=== PATIENT | female | born 1945 | race Caucasian/White ===

== ENCOUNTER 2022-06-26 21:26 | Emergency (ER) | payer MEDICARE, BC ==
[~2022-06-26] VITALS: Ht 167.6 cm; Wt 59.0 kg
[~2022-06-26 21:26] MED LIST: CYAN-51 PO; DOCU-141 PO; ERGO500014 PO; ESTR1.25 PO; HYDR4TAB4 PO; LORA-258 PO; PROM25TA15 PO; PROP80CA51 PO
--- NOTE | 2022-06-26 21:40 | NUR ---
TO ER BED 9. [id number] FROM HOME FOR GLF HIT BACK OF HEAD +LAC TDAP UNKNOWN -KO. PT IS ALERT AND ORIENTED. RR EVEN AND NONLABORED. CONNECTED TO MONITOR.
[2022-06-26] MEDS ORDERED: LIDOCAINE HCL/MPF 1% 30 ML VIAL IJ ONE (21:49)
[2022-06-26] MEDS ORDERED: LIDOCAINE /MPF 1% VIAL 5 ML VIAL ONE (21:50)
[2022-06-26] MEDS ORDERED: LIDOCAINE HCL/PF 1% 30 ML SDV ONE (21:51)
[2022-06-26] MEDS ORDERED: LIDOCAINE 0.5% HCL 50 ML VIAL ONE (21:52)
[2022-06-26] MEDS ORDERED: TDAP [DIPH/PERTUSSIS/TET] 0.5 ML VIAL IM ONE ×2 (22:00→22:11)
--- NOTE | 2022-06-26 23:45 | NUR ---
Patient discharged to home in stable condition. Written and verbal after care instructions given. Patient verbalizes understanding of instruction.
[2022-06-26 23:56] VITALS: BP 156/84
[2022-07-04] MEDS ORDERED: LEVE250T2 PO (16:34)
[2022-07-04] MEDS ORDERED: METR500P3 IV (16:34)
[2022-07-04] MEDS ORDERED: RXGEN XX (16:34)
== END 2022-06-26 23:56 | disposition home or self-care (01) ==
LOC: ER 21:32
DX: S01.01XA Laceration without foreign body of scalp, initial encounter (principal); Z88.8 Allergy status to other drugs, medicaments and biological substances; Z88.2 Allergy status to sulfonamides; Z88.6 Allergy status to analgesic agent; Z88.1 Allergy status to other antibiotic agents; Z88.5 Allergy status to narcotic agent; Z88.0 Allergy status to penicillin; Z60.2 Problems related to living alone; Z79.899 Other long term (current) drug therapy; W18.09XA Striking against other object with subsequent fall, initial encounter; Y93.89 Activity, other specified; Y92.89 Other specified places as the place of occurrence of the external cause; Y99.8 Other external cause status
CPT/HCPCS: 99283; 12002; 90471; 90715; J3490 ×4; A6403; 70450-TC

== ENCOUNTER 2022-06-29 03:49 | Inpatient (IN) | payer MEDICARE, BC ==
[~2022-06-29] VITALS: Ht 167.6 cm; Wt 59.0 kg
[2022-06-29 04:03] VITALS: BP 151/68
[2022-06-29 05:00] LABS: BILIRUBIN,URINE NEGATIVE (NEGATIVE); COLOR,URINE YELLOW (YELLOW); LEUKOCYTE ESTERASE ,URINE NEGATIVE (NEGATIVE); NITRITE, URINE NEGATIVE (NEGATIVE); PROTEIN,URINE NEGATIVE (NEGATIVE); UGLUCOSE NEGATIVE (NEGATIVE); UROBILINOGEN,URINE 0.2 EU/dL (0.2)
[2022-06-29] MEDS ORDERED: MEPERIDINE HCL/PF 100 MG/2 ML AMPUL IM ONE (05:00)
[2022-06-29] MEDS ORDERED: MORPHINE SULFATE INJ 2 MG/ML DISP.SYRIN IM ONE (07:00)
[2022-06-29] MEDS ORDERED: MORPHINE SULFATE INJ 2 MG/ML DISP.SYRIN ONE (07:00)
--- NOTE | 2022-06-29 07:55 | NUR ---
DR LYN AT BEDSIDE
--- NOTE | 2022-06-29 08:04 | NUR ---
PATIENT STS THAT MARCOS IS GOING TO PICK HER UP BUT REFUSED TO GIVE HER NUMBER SO WE CAN CALL HER.
--- NOTE | 2022-06-29 10:15 | NUR ---
JACOB LEIGH AT BEDSIDE FOR EVAL
[2022-06-29 10:57] LABS: BASOPHILS % (AUTO) 0.2 % (0.0-2.0); EOSINOPHILS % (AUTO) 0.2 % (0.0-6.0); HEMATOCRIT 29 % (33-45); HEMOGLOBIN 9.5 g/dL (11.5-14.8); LYMPHOCYTES # (AUTO) 1.4 K/uL (0.8-4.8); MEAN CORPUSCULAR HGB CONC 33 g/dl (31.0-36.0); MEAN CORPUSCULAR VOLUME 89 fL (82-100); MONOCYTES # (AUTO) 0.5 K/uL (0.1-1.30); MONOCYTES % (AUTO) 4.6 % (2.0-12.0); NEUTROPHILS # (AUTO) 8.7 K/uL (1.8-8.9); PLATELET COUNT (AUTO) 481 K/uL (150-450); RED BLOOD CELL COUNT(AUTO) 3.29 MIL/uL (4.0-5.2); WHITE BLOOD COUNT (AUTO) 10.6 K/uL (4.3-11.0)
[2022-06-29 11:04] LABS: BILIRUBIN,URINE NEGATIVE (NEGATIVE); COLOR,URINE YELLOW (YELLOW); LEUKOCYTE ESTERASE ,URINE NEGATIVE (NEGATIVE); NITRITE, URINE NEGATIVE (NEGATIVE); PROTEIN,URINE NEGATIVE (NEGATIVE); UGLUCOSE NEGATIVE (NEGATIVE); UROBILINOGEN,URINE 0.2 EU/dL (0.2)
[2022-06-29 11:05] LABS: PH,URINE >9.0 (5.0-8.0)
[2022-06-29 11:15] LABS: ALANINE AMINOTRANSFERASE 15 U/L (12-78); ALBUMIN 2.9 g/dL (3.4-5.0); ALKALINE PHOSPHATASE 114 U/L (46-116); ASPARTATE AMINOTRANSFERASE 19 U/L (15-37); BILIRUBIN,DIRECT 0.1 mg/dL (0.0-0.2); BILIRUBIN,TOTAL 0.4 mg/dL (0.2-1.0); CALCIUM, SERUM 9.1 mg/dL (8.5-10.1); CARBON DIOXIDE 30 mmol/L (21-32); CHLORIDE 98 mmol/L (98-107); CREATININE 0.9 mg/dL (0.6-1.3); GLUCOSE 129 mg/dL (74-106); POTASSIUM 3.6 mmol/L (3.5-5.1); SODIUM SERUM 139 mmol/L (136-145); TOTAL PROTEIN, SERUM 7.1 g/dL (6.4-8.2); UREA NITROGEN, BLOOD 10 mg/dL (7-18)
[2022-06-29 11:37] LABS: ACETAMINOPHEN 0 ug/ml (10-30); ALCOHOL, BLOOD < 3 mg/dL (0-0)
[2022-06-29 11:43] LABS: BACTERIA,URINE Few /HPF (None Seen); RBC,URINE 0-2 /HPF (0-2); SQUAMOUS EPITHELIAL CELL,UR Few /HPF (None Seen); WBC,URINE 0-2 /HPF (0-3)
[2022-06-29] MEDS ORDERED: MILN50TA PO (11:47)
[2022-06-29] MEDS ORDERED: CHOL100043 PO (11:47)
[2022-06-29] MEDS ORDERED: AMLO-212 PO (11:47)
[2022-06-29] MEDS ORDERED: DEXL60CA3 PO (11:47)
[2022-06-29] MEDS ORDERED: FOLI0.4T6 PO (11:55)
[2022-06-29] MEDS ORDERED: MAGN400T26 PO (11:55)
[2022-06-29] MEDS ORDERED: CLON1TAB12 PO (15:43)
[2022-06-29] MEDS ORDERED: [UNRECOGNIZED DRUG - CODE] SQ (15:43)
--- NOTE | 2022-06-29 16:53 | NUR ---
COVID SWAB AND MRSA SWAB COLLECTED
[2022-06-29] MEDS ORDERED: LORAZEPAM 1 MG TABLET PO ONE (17:00)
--- NOTE | 2022-06-29 19:31 | NUR ---
REPORT GIVEN NOVAN. PT AWAITING TRANSFER TO FLOOR.
--- NOTE | 2022-06-29 19:41 | NUR ---
PT TRANSFERRED TO [facility] ROOM 218, ACCOMPANIED BY TRANSPORTER. WARM HANDOFF GIVEN TO RN ASSIGNED.
--- NOTE | 2022-06-29 20:00 | NUR ---
[facility] RN NOTES PATIENT WAS MEDICALLY CLEARED AT EMERGENCY DEPARTMENT AND WHEN SHE WAS BROUGHT IN THE UNIT. PATIENT STARTED VOMITING WITH BLOOD CLOTS, APPEARED DARK RED IN COLOR IN SMALL TO MODERATE AMOUNT OF BLOOD. PATIENT HAS BEEN IN ER FOR 24HRS WITH CHIEF COMPLIANT OF DIZZINESS AND NAUSEA SINCE TUESDAY. PATIENT V/S TAKEN AND RECORDED BP 152/68, HR62, R-19, TEMP. 97.4 O2 SAT. AT 100% ON ROOM AIR. 2004- CALLED [facility] SPOKE WITH DR. PALUMBO NOTIFIED CHANGE OF CONDITION OF THE PATIENT WITH ORDER TO SEND BACK THE PATIENT TO ER AND TO DO COMPLETE WORK UP. ONCE COMPLETED, GIVE HIM A CALL IF THE PATIENT ADMITTED TO MED SURG. 2006 - DR. AUGUSTINE NOTIFIED THAT PATIENT WAS SENT BACK TO ER WELL NURSE HOE WORKER DANIEL. 2009 - CALLED ER SPOKE TO JAREN LUZ INFORMED HER TO SEND THE PATIENT BACK PER DR. PALUMBO ORDER. 2014 - PATIENT LEFT IN THE UNIT VIA GURNEY ACCOMPANIED BY STAFF IN STABLE CONDITION. NO NAUSEA AND VOMITING NOTED AT THIS TIME. CHARGE NURSE AWARE.
[2022-07-04] MEDS ORDERED: RXGEN XX (16:34)
[2022-07-04] MEDS ORDERED: LEVE250T2 PO (16:34)
[2022-07-04] MEDS ORDERED: METR500P3 IV (16:34)
== END 2022-06-29 20:46 | disposition home or self-care (01) | DRG 885 ==
LOC: ER 03:50 → GPS 19:11
PROVIDERS: ADMIT Psychiatry & Neurology Psychosomatic Medicine; ATTEND Internal Medicine
DX: F29 Unspecified psychosis not due to a substance or known physiological condition (principal); Z88.6 Allergy status to analgesic agent; Z88.4 Allergy status to anesthetic agent; Z88.1 Allergy status to other antibiotic agents; Z91.012 Allergy to eggs; Z91.02 Food additives allergy status; Z88.5 Allergy status to narcotic agent; Z88.0 Allergy status to penicillin; Z88.8 Allergy status to other drugs, medicaments and biological substances; Z91.09 Other allergy status, other than to drugs and biological substances; Z20.822 Contact with and (suspected) exposure to COVID-19; Z73.6 Limitation of activities due to disability; F41.9 Anxiety disorder, unspecified; Z91.018 Allergy to other foods; Z79.899 Other long term (current) drug therapy; F19.90 Other psychoactive substance use, unspecified, uncomplicated
CPT/HCPCS: 36415; 70450-TC; 80048-TC; 80076-TC; 81001; 85025-TC; C9803; G0480; J2270

== ENCOUNTER 2022-06-29 20:37 | Inpatient (IN) | payer MEDICARE, BC ==
[~2022-06-29] VITALS: Ht 167.6 cm; Wt 50.1 kg
[2022-06-29] MEDS: IV NS 0.9% 1,000 ML IV SCH (03:00)
[2022-06-29] MEDS: PANTOPRAZOLE 40 MG VIAL IV SCH (03:00)
[~2022-06-29 20:37] MED LIST changes: +AMLO-212 PO; +CHOL100043 PO; +CLON1TAB12 PO; +DEXL60CA3 PO; +FOLI0.4T6 PO; +MAGN400T26 PO; +MILN50TA PO; +[UNRECOGNIZED DRUG - CODE] SQ
--- NOTE | 2022-06-29 20:40 | NUR ---
PT WAS TRANSFERRED FROM [facility] FOR C/O VOMITING BLOOD X 5. PATIENT ALERT AND ORIENTED X2. BROUGHT IN BY [facility] BED, IN A GOWN ON BED 16 ON MONITOR AND POX, AWAITING MD WALTERS.
--- NOTE | 2022-06-29 20:53 | NUR ---
BLOOD COLLECTED AND SENTT O LAB
[2022-06-29 21:32] LABS: BASOPHILS # (AUTO) 0.1 K/uL (0.0-0.2); BASOPHILS % (AUTO) 0.6 % (0.0-2.0); HEMATOCRIT 33 % (33-45); HEMOGLOBIN 10.8 g/dL (11.5-14.8); LYMPHOCYTES # (AUTO) 1.4 K/uL (0.8-4.8); LYMPHOCYTES % (AUTO) 9.1 % (20.0-44.0); MEAN CORPUSCULAR HGB CONC 33 g/dl (31.0-36.0); MEAN CORPUSCULAR VOLUME 88 fL (82-100); MONOCYTES # (AUTO) 0.3 K/uL (0.1-1.30); MONOCYTES % (AUTO) 2.3 % (2.0-12.0); NEUTROPHILS # (AUTO) 13.1 K/uL (1.8-8.9); PLATELET COUNT (AUTO) 581 K/uL (150-450); RED BLOOD CELL COUNT(AUTO) 3.74 MIL/uL (4.0-5.2); WHITE BLOOD COUNT (AUTO) 14.9 K/uL (4.3-11.0)
[2022-06-29 21:40] LABS: CALCIUM, SERUM 9.4 mg/dL (8.5-10.1); CREATININE 0.9 mg/dL (0.6-1.3); POTASSIUM 2.9 mmol/L (3.5-5.1)
[2022-06-29 21:47] LABS: BILIRUBIN,DIRECT 0.2 mg/dL (0.0-0.2); BILIRUBIN,TOTAL 0.7 mg/dL (0.2-1.0); TOTAL PROTEIN, SERUM 7.8 g/dL (6.4-8.2)
[2022-06-29] MEDS ORDERED: MEPERIDINE HCL SQ PRN (23:30)
[2022-06-29] MEDS ORDERED: hydrALAZINE HCL IV 20 MG VIAL IV PRN (23:30)
--- NOTE | 2022-06-29 23:47 | NUR ---
LAB AT BEDSIDE FOR BLOOD DRAW
[2022-06-30] MEDS ORDERED: clonazePAM 1 MG TABLET ONE (02:55)
[2022-06-30] MEDS ORDERED: ENOXAPARIN SODIUM 40 MG/0.4 ML DISP.SYRIN SQ ONE (02:55)
[2022-06-30] MEDS ORDERED: PANTOPRAZOLE 40 MG VIAL ONE (02:55)
[2022-06-30] MEDS: clonazePAM 1 MG TABLET PO PRN ×3 (03:12→20:05)
[2022-06-30] MEDS: ENOXAPARIN SODIUM 40 MG/0.4 ML DISP.SYRIN SQ SCH ×2 (03:12→21:37)
--- NOTE | 2022-06-30 03:12 | NUR ---
PT REFUSED CLONAZEPAM DUE TO THE COLOR, PT STATES "I CAN ONLY TAKE THE BLUE KIND"
[2022-06-30 05:12] LABS: BASOPHILS # (AUTO) 0.1 K/uL (0.0-0.2); BASOPHILS % (AUTO) 0.3 % (0.0-2.0); EOSINOPHILS % (AUTO) 0.1 % (0.0-6.0); HEMATOCRIT 33 % (33-45); HEMOGLOBIN 10.4 g/dL (11.5-14.8); LYMPHOCYTES # (AUTO) 1.7 K/uL (0.8-4.8); LYMPHOCYTES % (AUTO) 10.4 % (20.0-44.0); MEAN CORPUSCULAR HGB CONC 32 g/dl (31.0-36.0); MEAN CORPUSCULAR VOLUME 89 fL (82-100); MONOCYTES # (AUTO) 0.6 K/uL (0.1-1.30); MONOCYTES % (AUTO) 4.1 % (2.0-12.0); NEUTROPHILS # (AUTO) 13.6 K/uL (1.8-8.9); NEUTROPHILS % (AUTO) 85.1 % (43.0-81.0); PLATELET COUNT (AUTO) 597 K/uL (150-450); RED BLOOD CELL COUNT(AUTO) 3.67 MIL/uL (4.0-5.2)
[2022-06-30 05:29] LABS: BILIRUBIN,TOTAL 0.6 mg/dL (0.2-1.0); CALCIUM, SERUM 9.3 mg/dL (8.5-10.1); MAGNESIUM 1.8 mg/dL (1.8-2.4); PHOSPHORUS 4.5 mg/dL (2.5-4.9); TOTAL PROTEIN, SERUM 7.6 g/dL (6.4-8.2)
--- NOTE | 2022-06-30 08:12 | NUR ---
ROOM 310-2
--- NOTE | 2022-06-30 08:12 | NUR ---
PT REPORT GIVEN TO JAREN NG
--- NOTE | 2022-06-30 08:25 | NUR ---
RN NOTE- PT BROUGHT TO ROOM 310-2 W SITTER FOR ADMISSION. PT ON 5150 DTS, PSYCHOSIS, HTN, IBS, N&V AND ANXIETY. ADMIT PER PROTOCOL.
[2022-06-30] MEDS ORDERED: MEPERIDINE25 MG SYR 25 MG/ML VIAL SQ PRN (08:30)
--- NOTE | 2022-06-30 08:30 | NUR ---
BEEF PUSHER NOTE- 77 Y/O FEMALE BROUGHT TO ER FROM [facility] WHERE SHE WAS ON A 5150 HOLD FOR DTS. PT HAS HX OF S/P FALL WITH FOUR RONNIE TO REAR SCALP, PREVIOUS MEDICAL HX- IBS, COLITIS, PSYCHOSIS, DIVERTICULITIS AND TWO WEEKS S/P LOWER BACK SURGERY (DETAILS UNKNOWN) PT IS LABILE, YELLING FOR DEMEROL WHICH SHE USES FOR PAIN MANAGEMENT. VS 170/72, HR-88., RR-20, T- 98.6, O2 SATS 96% RA. SKIN W FOUR RONNIE TO REAR SCALP, DRY DRESSING W STERI STRIPS TO LUMBER SPINE. CHEST CLEAR, BS POS, AOX3, CRYING , REFUSING CARE AND PO RX. SIDE RAILS UP, BED LOCKED, 1:1 SITTER AT BEDSIDE. MONITOR / ASSIST
--- NOTE | 2022-06-30 08:34 | NUR ---
PT TRANSFERRED TO 310-2 VIA [facility] ACLS PROTOCOL. WARM HANDOFF GIVEN TO RN ASSIGNED.
[2022-06-30] MEDS: AMLODIPINE BESYLATE 5 MG TABLET PO SCH (09:00)
[2022-06-30] MEDS ORDERED: MILNACIPRAN HCL 50 MG PO SCH (09:00)
[2022-06-30] MEDS ORDERED: PROPRANOLOL HCL 160 MG PO SCH (09:00)
[2022-06-30] MEDS: FOLIC ACID 1 MG TABLET PO SCH (09:00)
[2022-06-30] MEDS: DOCUSATE SODIUM 100 MG CAPSULE PO SCH ×2 (09:00→17:00)
[2022-06-30] MEDS: ESTROGENS,CONJUGATED (0.3 mg) 0.3 MG TABLET PO SCH (09:00)
[2022-06-30] MEDS: PANTOPRAZOLE 40 MG VIAL IV SCH ×2 (09:05→16:54)
--- NOTE | 2022-06-30 09:22 | NUR ---
RN NOTE- PT SCREAMING , CRYING IN PAIN TO ABDOMEN. DEMEROL 25 MG SC ORDERED AND OBTAINED. ADMINISTERED ALONG W IV PROTONIX. PT REFUSED PO MEDS. DR AUGUSTINE SEEING PT FOR PSYCHE ISSUES AT BEDSIDE. BP- 170/72, HR-88, RR- 20, T- 98.6. 1:1 SITTER AT BEDSIDE
[2022-06-30] MEDS: IV NS 0.9% 1,000 ML IV SCH (09:39)
[2022-06-30] MEDS: METRONIDAZOLE 500MG/ NS 100ML 500 MG in PREMIX 1 EA IV SCH ×2 (11:59→20:08)
--- NOTE | 2022-06-30 12:00 | NUR ---
RN NOTE- CRYING IN PAIN. STATES DEMEROL DOSE TOO LOW. PAIN CONTINUING DESPITE 25 MG DEMEROL ADMINISTRATION. MD CORREA
[2022-06-30 12:15] LABS: HEMOGLOBIN 8.1 g/dL (11.5-14.8)
[2022-06-30] MEDS: POTASSIUM CHLORIDE 20 MEQ TAB.PRT.SR PO SCH ×3 (12:30→14:30)
--- NOTE | 2022-06-30 13:30 | NUR ---
RN NOTE- PRODUCT DEVELOPMENT KRISS TO HAVE PAIN MANAGEMENT SEE PT. CALLED OUTSIDE PHARMACY. PT TAKING DEMEROL 25 MG IM Q4HPRN BUT WAS ON DEMEROL 50 MG Q8HPRN PREVIOUSLY. PHARMACIST STATED THAT PT NEVER TOOK TOO MUCH OR REQUESTED EARLY REFILLS. UTILIZED PRESCRIBED.
[2022-06-30] MEDS: MEPERIDINE25 MG SYR 25 MG/ML VIAL SQ PRN ×3 (13:37→23:16)
--- NOTE | 2022-06-30 13:37 | NUR ---
RN NOTE- DEMEROL 25 MG ADMINISTERED. PT CRYING. AWARE.
[2022-06-30 14:04] LABS: BASOPHILS % (AUTO) 0.1 % (0.0-2.0); HEMATOCRIT 26 % (33-45); HEMOGLOBIN 8.1 g/dL (11.5-14.8); LYMPHOCYTES # (AUTO) 1.7 K/uL (0.8-4.8); LYMPHOCYTES % (AUTO) 11.8 % (20.0-44.0); MEAN CORPUSCULAR HGB CONC 32 g/dl (31.0-36.0); MEAN CORPUSCULAR VOLUME 91 fL (82-100); MONOCYTES # (AUTO) 0.9 K/uL (0.1-1.30); MONOCYTES % (AUTO) 5.8 % (2.0-12.0); NEUTROPHILS # (AUTO) 12.1 K/uL (1.8-8.9); NEUTROPHILS % (AUTO) 82.3 % (43.0-81.0); PLATELET COUNT (AUTO) 522 K/uL (150-450); RED BLOOD CELL COUNT(AUTO) 2.84 MIL/uL (4.0-5.2); WHITE BLOOD COUNT (AUTO) 14.8 K/uL (4.3-11.0)
[2022-06-30 15:27] LABS: BAND % (MANUAL) 1 % (0.0-5.0); LYMPHOCYTES % (MANUAL) 8 % (16-48); MONOCYTES % (MANUAL) 5 % (0-11.0); NEUTROPHILS % (MANUAL) 86 (42-76)
--- NOTE | 2022-06-30 18:49 | NUR ---
RN NOTE- ABSTRACT SEARCHER KRISS AND PAIN MANAGEMENT ORDERED DEMEROL 50 MG Q6HPRN W CONTINUOUS PULSE OX MONITORING. RT CALLED FOR PULSE OX.
--- NOTE | 2022-06-30 18:50 | NUR ---
RN CLOSING NOTE- PT ALERT IN BED, STILL IN PAIN THOUGH LESS THAN BEFORE. IV NS INFUSING TO LFT WRIST 20G. PO INTAKE POOR, OPPOSES PO MEDS AND ORAL INTAKE LIMITED. NEW RX ORDERED. PT CONSULT TOMORROW. WOUND CONSULT TOMORROW AND LABS. SIDE RAILS UP X2, BED LOCKED, LOWEST POSITION, CALL LIGHT WITHIN REACH.
[2022-06-30] MEDS ORDERED: BISACODYL (5 MG) 5 MG TABLET.DR PO PRN (19:30)
--- NOTE | 2022-06-30 19:43 | NUR ---
RN OPENING NOTES; RECEIVED PT IN BED AAOX2,MARKUS WELL ON RM AIR,NO SIGN SOB/DISTRESS NOTED,IV ACCESS ON LFA WRIST 20G.PATENT AND INTACT,SAFETY MEASURE INPLACE,CALL LIGHT WITHIN REACH.WILL CONTINUE TO MONITOR
[2022-06-30] MEDS: POTASSIUM CL. PREMIX PERIPHER. 50 ML IV SCH ×4 (20:06→23:59)
[2022-06-30] MEDS ORDERED: MEROPENEM 500 MG in IV NS 0.9% 50 ML IV SCH (21:00)
[2022-06-30 21:21] LABS: HEMOGLOBIN 9.8 g/dL (11.5-14.8)
[2022-06-30] MEDS: MEROPENEM 1 G in IV NS 0.9% 100 ML IV SCH (21:47)
[2022-06-30 22:29] VITALS: BP 184/77
--- NOTE | 2022-06-30 23:16 | NUR ---
RN NOTES; PT COMPLAINED OF PAIN ABDOMEN 10/10,PRN MEPERIDINE 50MG WAS GIVEN,NO A/R NOTED.
[2022-07-01] MEDS: POTASSIUM CL. PREMIX PERIPHER. 50 ML IV SCH ×8 (00:38→19:58)
[2022-07-01 00:44] VITALS: BP 176/68
[2022-07-01] MEDS: IV NS 0.9% 1,000 ML IV SCH ×2 (02:37→15:44)
[2022-07-01] MEDS: METRONIDAZOLE 500MG/ NS 100ML 500 MG in PREMIX 1 EA IV SCH ×3 (03:21→20:57)
[2022-07-01] MEDS: MEPERIDINE25 MG SYR 25 MG/ML VIAL SQ PRN ×3 (05:20→20:36)
--- NOTE | 2022-07-01 05:30 | NUR ---
RN NOTES; PT COMPLAINED OF GEN,BODY PAIN 10/10,PRN MEPERIDINE 50MG SQ WAS GIVEN,NO A/R NOTED.
--- NOTE | 2022-07-01 06:24 | NUR ---
RN CLOSING NOTES; PT IN BED AAOX3,MARKUS WELL ON RM AIR,NO SIGN SOB/DISTRESS NOTED,DUE MEDS GIVEN ORDER,ALL NEEDS ATTENDED,KEPT PT CLEANED AND DRY AT ALL TIME,IV ACCESS ON LFA WRIST 20G.PATENT AND INTACT,SAFETY MEASURE INPLACE,CALL LIGHT WITHIN REACH.WILL ENDORSED TO NEXT SHIFT.
--- NOTE | 2022-07-01 07:45 | NUR ---
SOLAR ENERGY INSTALLATION MANAGER OPENING NOTES RECEIVED PATIENT IN BED THIS MORNING. A/O X 3. TELE MONITOR SR 67 BPM. HAD A KUB PERFORMED AT 0600. IV ACCESS TO LFA, #20G, SL. SAFETY MEASURES IN PLACE: BED IN LOWEST LOCKED POSITION, SIDE RAILS X 2, CALL LIGHT AND TABLE WITHIN EASY REACH. WILL CONTINUE TO MONITOR.
[2022-07-01 08:00] VITALS: BP 180/91
[2022-07-01] MEDS: ESTROGENS,CONJUGATED (0.3 mg) 0.3 MG TABLET PO SCH ×2 (08:24→08:55)
[2022-07-01] MEDS: PROPRANOLOL LA 60 MG CAP.SA.24H PO SCH ×2 (08:24→08:53)
[2022-07-01] MEDS: PANTOPRAZOLE 40 MG VIAL IV SCH ×2 (08:25→17:29)
[2022-07-01] MEDS: DOCUSATE SODIUM 100 MG CAPSULE PO SCH ×3 (08:25→17:28)
[2022-07-01] MEDS: FOLIC ACID 1 MG TABLET PO SCH ×2 (08:25→08:53)
[2022-07-01] MEDS: AMLODIPINE BESYLATE 5 MG TABLET PO SCH ×2 (08:25→08:54)
[2022-07-01] MEDS: hydrALAZINE HCL IV 20 MG VIAL IV PRN (08:47)
--- NOTE | 2022-07-01 08:56 | NUR ---
MEDICATION WAS SCANNED AFTER TAKING IT OUT OF [facility] FOR 0900 MED PASS. PATIENT REFUSED ALL ORAL MEDICATION. PREMARIN 0.3MG X 4 TABS, NORVASC 5 MG, INDERAL LA 60 MG X 2= 120 MG, PROTONIX IV 40 MG, COLACE 100 MG, AND FOLATE 1MG. BECAUSE B/P WAS 180/91, IV HYDRALAZINE WAS GIVEN 10 MG.
[2022-07-01] MEDS: MEROPENEM 1 G in IV NS 0.9% 100 ML IV SCH (09:10)
[2022-07-01 09:23] LABS: BASOPHILS # (AUTO) 0.1 K/uL (0.0-0.2); BASOPHILS % (AUTO) 0.4 % (0.0-2.0); EOSINOPHILS % (AUTO) 0.1 % (0.0-6.0); HEMATOCRIT 30 % (33-45); HEMOGLOBIN 9.8 g/dL (11.5-14.8); LYMPHOCYTES # (AUTO) 1.9 K/uL (0.8-4.8); LYMPHOCYTES % (AUTO) 9.8 % (20.0-44.0); MEAN CORPUSCULAR HGB CONC 33 g/dl (31.0-36.0); MEAN CORPUSCULAR VOLUME 88 fL (82-100); MONOCYTES % (AUTO) 5.2 % (2.0-12.0); NEUTROPHILS % (AUTO) 84.5 % (43.0-81.0); PLATELET COUNT (AUTO) 572 K/uL (150-450); RED BLOOD CELL COUNT(AUTO) 3.44 MIL/uL (4.0-5.2)
--- NOTE | 2022-07-01 09:30 | NUR ---
WOUND CARE CONSULT: PT PRESENTS WITH LUMBAR CLOSED INCISION WITH NON REMOVABLE STERI STRIPS, NO DRAINAGE OR ERYTHEMA, PRESENT ON ADMISSION. RECOMMEND SURGICAL FOLLOW UP AND PROTECT WITH FOAM DRESSING. PT ALSO NOTED TO HAVE CLOSED LACERATION TO SCALP WITH RONNIE, PRESENT ON ADMISSION. RECOMMENDATIONS MADE FOR SKIN PROTECTION. DISCUSSED WITH NURSING STAFF. MDIN AGREEMENT WITH PLAN OF CARE. Addendum: 07/01/22 at 0952 by ANIA CHRISTIAN WNDNU PT IS CACHECTIC. DIETARY CONSULT IN PLACE.
[2022-07-01 09:36] LABS: CALCIUM, SERUM 8.4 mg/dL (8.5-10.1); CREATININE 0.9 mg/dL (0.6-1.3); MAGNESIUM 1.8 mg/dL (1.8-2.4); PHOSPHORUS 3.1 mg/dL (2.5-4.9)
[2022-07-01] MEDS: clonazePAM 1 MG TABLET PO PRN (10:22)
[2022-07-01] MEDS ORDERED: LORAZEPAM INJ 2 MG/ML VIAL IV STA (10:32)
[2022-07-01] MEDS ORDERED: LEVETIRACETAM (500MG) 1,000 MG in IV NS 0.9% 100 ML IV STA (10:35)
--- NOTE | 2022-07-01 10:55 | NUR ---
RN NOTES AT ABOUT 1015 PT NOTED VERY RESTLESS AND ANXIOUS, PRN KLONAZEPAN 1 MG PO ADMINISTERED. AT 1025 PT NOTED HAVING SEIZURE WITH MILD JERKING OF UPPER BODY AND UPPER EXTREMITIES, EYES WE'RE CLOSED AND PT DROOLING SALIVA, SEIZUR LASTED ABOUT 90 SECONDS. PITCH WORKER KRISS ON UNIT AND WENT TO SEE PT, WITNESSED PT HAVING SEIZURE. SHE ORDERED ATIVAN 2MG IV STAT AND KEPPRA 1G IV STAT. ATIVAN ADMINISTERED AT 1040, AWAITING FOR PHARMACY TO DELIVER KEPPRA IV TO BE ADMINISTERED. PT ASLEEP AT THIS TIME. V/S POST SEIZURE TAKEN: BP 151/56, P 83, R 18, T 98.5F AND O2 SAT 100% ON 02 VIA N/C AT 5LPM. PT ASLEEP AT THIS TIME. WILL CONTINUE TO MONITOR PT CLOSELY.
[2022-07-01] MEDS ORDERED: NA PHOS,M-B/NA PHOS,DI-BA 1 EA ENEMA RC PRN (11:00)
[2022-07-01] MEDS ORDERED: BISACODYL SUPP (10 MG) 10 MG/SUPP.RECT SUPP.RECT RC PRN (11:00)
--- NOTE | 2022-07-01 11:09 | NUR ---
PATIENT HAD A SEIZURE FOR 1 MINUTE FROM 10:18-10:19. CLONAZEPAM 1 GM WAS GIVEN AT 10:22 AM. PATIENT DROOLING AND MOUTH WAS SUCTIONED. JUANJO MONTERROSO SAW THIS PATIENT AND ORDERED 2 GRAMS ATIVAN IV STAT AND KEPPRA 1000 MG IV STAT. ADMINISTERED SUCCESSFULLY AND PATIENT QUICKLY FELL ASLEEP.
[2022-07-01 11:57] LABS: BILIRUBIN,URINE SMALL (NEGATIVE); COLOR,URINE YELLOW (YELLOW); LEUKOCYTE ESTERASE ,URINE NEGATIVE (NEGATIVE); NITRITE, URINE NEGATIVE (NEGATIVE); PROTEIN,URINE 30 mg/dl (NEGATIVE); UGLUCOSE NEGATIVE (NEGATIVE); UROBILINOGEN,URINE 0.2 EU/dL (0.2)
[2022-07-01 12:00] VITALS: BP 151/56
[2022-07-01 12:11] LABS: BACTERIA,URINE None seen /HPF (None Seen); SQUAMOUS EPITHELIAL CELL,UR Few /HPF (None Seen); WBC,URINE NONE SEEN /HPF (0-3)
[2022-07-01] MEDS ORDERED: GENTAMICIN 320 MG in IV D5W 100 ML IV SCH (14:00)
--- NOTE | 2022-07-01 14:15 | NUR ---
RN NOTES SAWYER CORK SLABS CAME TO DRAW H & H AT 1400 BUT PT REFUSED.
--- NOTE | 2022-07-01 17:20 | NUR ---
RN NOTES LEFT WRIST G#22 IV ACCESS INFILTRATED. MIDLINE INSERTED TO CATY G#18 PER MD ORDER.
[2022-07-01] MEDS: ENSURE ENLIVE 237 ML LIQUID (VANILLA) PO SCH (17:37)
[2022-07-01 18:08] VITALS: BP 149/60
--- NOTE | 2022-07-01 18:45 | NUR ---
PLASTICS PLATER CLOSING NOTES PT IN BED A/OX3 WITH FRIENDS AND FAMILY BY BEDSIDE.,MARKUS WELL ON RM AIR,NO SIGN SOB/DISTRESS NOTED,DUE MEDS GIVEN ORDERED ,ALL NEEDS ATTENDED,KEPT PT CLEANED AND DRY AT ALL TIME, IV ACCESS ON LFA WRIST 20G INFILTRATED AND WAS REPLACED TO CATY #18G, PATENT AND INTACT. SINUS RHYTHM 89 BPM. SAFETY MEASURES IN PLACE: BED IN LOWEST LOCKED POSITION, SIDE RAILS X 2, CALL LIGHT WITHIN REACH. WILL ENDORSED TO NEXT SHIFT FOR CONTINUITY OF CARE.
--- NOTE | 2022-07-01 19:30 | NUR ---
RN OPENING NOTE PATIENT IN BED, A/O X 2, ABLE TO MAKE NEEDS KNOWN. PATIENT IS YELLING THAT SHE NEEDS HER PAIN MEDICATION. WILL MANAGE PAIN APPROPRIATELY. PATIENT IS ON 2 LPM VIA NC, TOLERATING WELL, BREATHING EVEN AND UNLABORED. TELE MONITOR READS ST 106 AT THIS TIME. CATY MIDLINE 18G PATENT AND INTACT INFUSING POTASSIUM IV AT THIS TIME. SAFETY MEASURES IN PLACE: BED LOCKED AND IN LOWEST POSITION, CALL LIGHT WITHIN REACH, SIDE RAILS UP. WILL MONITOR PATIENT CLOSELY.
[2022-07-01 20:00] VITALS: BP 120/96
[2022-07-01] MEDS: LEVETIRACETAM (500MG) 500 MG in IV NS 0.9% 100 ML IV SCH (20:06)
[2022-07-01] MEDS: ENOXAPARIN SODIUM 40 MG/0.4 ML DISP.SYRIN SQ SCH (20:36)
[2022-07-01 21:34] LABS: HEMOGLOBIN 8.9 g/dL (11.5-14.8)
[2022-07-02] VITALS: BP 142/66
[2022-07-02 04:00] VITALS: BP 140/80
[2022-07-02] MEDS: METRONIDAZOLE 500MG/ NS 100ML 500 MG in PREMIX 1 EA IV SCH ×3 (04:37→20:45)
[2022-07-02] MEDS: IV NS 0.9% 1,000 ML IV SCH ×3 (04:37→20:44)
[2022-07-02 06:39] LABS: BASOPHILS % (AUTO) 0.2 % (0.0-2.0); EOSINOPHILS % (AUTO) 0.6 % (0.0-6.0); HEMATOCRIT 28 % (33-45); LYMPHOCYTES # (AUTO) 2.1 K/uL (0.8-4.8); LYMPHOCYTES % (AUTO) 14.3 % (20.0-44.0); MEAN CORPUSCULAR HGB CONC 32 g/dl (31.0-36.0); MEAN CORPUSCULAR VOLUME 89 fL (82-100); MONOCYTES # (AUTO) 1.2 K/uL (0.1-1.30); MONOCYTES % (AUTO) 8.1 % (2.0-12.0); NEUTROPHILS # (AUTO) 11.5 K/uL (1.8-8.9); NEUTROPHILS % (AUTO) 76.8 % (43.0-81.0); PLATELET COUNT (AUTO) 468 K/uL (150-450); RED BLOOD CELL COUNT(AUTO) 3.13 MIL/uL (4.0-5.2); WHITE BLOOD COUNT (AUTO) 14.9 K/uL (4.3-11.0)
--- NOTE | 2022-07-02 06:58 | NUR ---
RN CLOSING NOTE PATIENT IN BED, A/O X 2, ABLE TO MAKE NEEDS KNOWN. PATIENT CALM AT THIS TIME. PATIENT IS ON 2 LPM VIA NC, TOLERATING WELL, BREATHING EVEN AND UNLABORED. TELE MONITOR READS SR 89 BPM AT THIS TIME. CATY MIDLINE 18G PATENT AND INTACT INFUSING NS AT 75 ML/HR, INFUSING WELL. PAIN MANAGED WITH DEMEROL, SUPPOSITORY GIVEN PATIENT STILL CONSTIPATED. SAFETY MEASURES IN PLACE: BED LOCKED AND IN LOWEST POSITION, CALL LIGHT WITHIN REACH, SIDE RAILS UP. ALL NEEDS MET AND ATTENDED. ALL ORDERS CARRIED OUT. WILL ENDORSE TO DAY SHIFT NURSE FOR MICHI
[2022-07-02 07:15] LABS: CALCIUM, SERUM 8.1 mg/dL (8.5-10.1); MAGNESIUM 1.9 mg/dL (1.8-2.4); PHOSPHORUS 1.9 mg/dL (2.5-4.9)
--- NOTE | 2022-07-02 07:30 | NUR ---
RN Opening Note PT AOx4, able to express her own concerns. Discussed plan of care with pt, she agrees. Will continue to monitor throughout shift. All safety precautions taken, bed at lowest position, call light and table within reach. IV site with no signs of infiltration. Will provide care as needed, and medications as prescribed
[2022-07-02 07:42] LABS: POTASSIUM 2.6 mmol/L (3.5-5.1)
[2022-07-02 08:00] VITALS: BP 178/72
[2022-07-02] MEDS: PANTOPRAZOLE 40 MG VIAL IV SCH ×2 (08:47→17:08)
[2022-07-02] MEDS: FOLIC ACID 1 MG TABLET PO SCH (08:47)
[2022-07-02] MEDS: AMLODIPINE BESYLATE 5 MG TABLET PO SCH (08:47)
[2022-07-02] MEDS: LEVETIRACETAM (500MG) 500 MG in IV NS 0.9% 100 ML IV SCH ×2 (08:47→20:05)
[2022-07-02] MEDS: DOCUSATE SODIUM 100 MG CAPSULE PO SCH ×2 (08:47→17:00)
[2022-07-02] MEDS: ENSURE ENLIVE 237 ML LIQUID (VANILLA) PO SCH ×2 (08:48→17:08)
[2022-07-02] MEDS: ESTROGENS,CONJUGATED (0.3 mg) 0.3 MG TABLET PO SCH (09:34)
[2022-07-02] MEDS: PROPRANOLOL LA 60 MG CAP.SA.24H PO SCH (09:35)
[2022-07-02] MEDS ORDERED: K PHOS NEUTRAL 250 MG TABLET PO ONE (10:00)
[2022-07-02] MEDS: POTASSIUM CL. PREMIX PERIPHER. 50 ML IV SCH ×4 (12:14→14:47)
[2022-07-02 13:10] LABS: HEMOGLOBIN 9.3 g/dL (11.5-14.8)
[2022-07-02] MEDS: MEPERIDINE25 MG SYR 25 MG/ML VIAL SQ PRN ×2 (15:01→22:01)
[2022-07-02 16:00] VITALS: BP_SYST 132; BP_SYST 154; BP_DIAS 64; BP_DIAS 76
[2022-07-02 17:57] LABS: POTASSIUM 3.1 mmol/L (3.5-5.1)
--- NOTE | 2022-07-02 18:25 | NUR ---
RN Closing Note. PT AOx2, able to express her own concerns. Vital Signs stable throughout shift. Administered medications as prescribed, did not administer stool softener since pt had 3 bowel movements throughout shift. All safety precautions taken, call light and table within reach, bed at lowest position. Will endorse report to assembler 1st shift. Pt refused to eat, states she does not want to gain weight Pt called stated she was dirty and had had a bowel movement, no visible bowel movement. Pt put her finger in her rectum and wiped fecen on sheets. FISH HATCHERY SUPERVISOR cleaned pt 3x due to the same reason. Educated pt on importance of waiting for a bowel movement, states she feel more comfortable when she helps it come out.
--- NOTE | 2022-07-02 19:30 | NUR ---
RN OPENING NOTE PATIENT IN BED, A/O X 2, ABLE TO MAKE NEEDS KNOWN. PATIENT IS CALM AT THIS TIME, NO PAIN REPORTED. PATIENT IS ON 2 LPM VIA NC, TOLERATING WELL, BREATHING EVEN AND UNLABORED. TELE MONITOR READS SR 85 BPM AT THIS TIME. CATY MIDLINE 18G PATENT AND INTACT, R HAND 20 G PATENT AND INTACT. SAFETY MEASURES IN PLACE: BED LOCKED AND IN LOWEST POSITION, CALL LIGHT WITHIN REACH, SIDE RAILS UP. WILL MONITOR PATIENT CLOSELY.
[2022-07-02 20:00] VITALS: BP 145/76
[2022-07-02] MEDS: ENOXAPARIN SODIUM 40 MG/0.4 ML DISP.SYRIN SQ SCH (20:09)
--- NOTE | 2022-07-02 21:43 | NUR ---
RN NOTE NOTIFIED WINDOWS SERVER ENGINEER MD RE POTASSIUM OF 3.1. PER MD, WILL REPLACE IN AM.
[2022-07-02 21:45] LABS: HEMOGLOBIN 9.4 g/dL (11.5-14.8)
--- NOTE | 2022-07-02 22:01 | NUR ---
RN NOTE DEMEROL GIVEN D/T PATIENT COMPLAINING OF 10/10 PAIN ON HER ABDOMEN
[2022-07-03] VITALS: BP 150/75
[2022-07-03 04:00] VITALS: BP 174/73
[2022-07-03] MEDS: METRONIDAZOLE 500MG/ NS 100ML 500 MG in PREMIX 1 EA IV SCH ×3 (04:02→20:18)
[2022-07-03] MEDS: MEPERIDINE25 MG SYR 25 MG/ML VIAL SQ PRN (04:17)
[2022-07-03 07:13] LABS: BASOPHILS # (AUTO) 0.1 K/uL (0.0-0.2); BASOPHILS % (AUTO) 1.1 % (0.0-2.0); EOSINOPHILS % (AUTO) 1.1 % (0.0-6.0); HEMATOCRIT 30 % (33-45); HEMOGLOBIN 9.7 g/dL (11.5-14.8); LYMPHOCYTES # (AUTO) 2.4 K/uL (0.8-4.8); LYMPHOCYTES % (AUTO) 20.4 % (20.0-44.0); MEAN CORPUSCULAR HGB CONC 33 g/dl (31.0-36.0); MEAN CORPUSCULAR VOLUME 88 fL (82-100); MONOCYTES # (AUTO) 0.8 K/uL (0.1-1.30); MONOCYTES % (AUTO) 7.1 % (2.0-12.0); NEUTROPHILS # (AUTO) 8.3 K/uL (1.8-8.9); NEUTROPHILS % (AUTO) 70.3 % (43.0-81.0); PLATELET COUNT (AUTO) 407 K/uL (150-450); RED BLOOD CELL COUNT(AUTO) 3.37 MIL/uL (4.0-5.2); WHITE BLOOD COUNT (AUTO) 11.8 K/uL (4.3-11.0)
--- NOTE | 2022-07-03 07:19 | NUR ---
RN CLOSING NOTE PATIENT IN BED, A/O X 2-3, ABLE TO MAKE NEEDS KNOWN. PATIENT WAS CALM AND COOPERATIVE DURING THE SHIFT, NO PAIN REPORTED. PATIENT NOW ON RA, TOLERATING WELL, BREATHING EVEN AND UNLABORED. TELE MONITOR READS SR 88 BPM AT THIS TIME. CATY MIDLINE 18G PATENT AND INTACT, R FA 20 G PATENT AND INTACT. PAIN MANAGED WITH DEMEROL SQ. SAFETY MEASURES IN PLACE: BED LOCKED AND IN LOWEST POSITION, CALL LIGHT WITHIN REACH, SIDE RAILS UP. ALL NEEDS MET AND ATTENDED. ALL ORDERS CARRIED OUT. WILL ENDORSE TO DAY SHIFT NURSE FOR MICHI.
--- NOTE | 2022-07-03 07:30 | NUR ---
RN Receiving Note PT AOx3, able to express her own concerns. Patient with no signs of distress. Patient sitting up in bed, looking at her food, states she is not hungry, educated pt on importance of eating and at least drinking her ensure, states she will take a couple of sips. IV fluids running as prescribed, no signs of infiltration. All Safety precautions taken, call light and table within reach, bed at lowest position. Will continue to monitor throughout shift, provide care as needed, and medications as prescribed
[2022-07-03 07:43] LABS: CALCIUM, SERUM 8.3 mg/dL (8.5-10.1); CREATININE 0.8 mg/dL (0.6-1.3); MAGNESIUM 1.6 mg/dL (1.8-2.4); POTASSIUM 3.1 mmol/L (3.5-5.1)
--- NOTE | 2022-07-03 07:52 | NUR ---
RN CLOSING NOTE PATIENT STATES WANTED TO GO OVER HIS MED LIST HE SAYS HE IS ALLERGIC TO HYDRALAZINE, ACETAMINOPHEN, PROTONIX CAN'T TAKE ASPIRIN D/T HIS PEPTIC ULCER. CLONIDINE 0.2 MG WILL MAKE HIM LETHARGIC AND INCOHERENT, PATIENT ALSO STATES THAT HE IS ON KETO DIET WITH HIGH PROTEIN HIGH FIBER AND HIGH VEGETABLE WITH DOUBLE PORTIONS. CALLED DIETARY THREE TIMES NO ANSWER. PATIENT GIVEN TRAMADOL AT 50 MG, MD OKAYED TO GIVE EVEN WITH MORPHINE ALLERGY. PATIENT WOULD LIKE TO SPEAK TO MD. BS 131 MG/DL, GIVEN 2 UNITS OF REGULAR INSULIN FOR COVERAGE. PATIENT NOT IN ANY APPARENT DISTRESS. ENDORSED TO DAY SHIFT NURSE FOR MICHI. Addendum: 07/03/22 at 0757 by CARMEN YOUNG RN WRONG PATIENT
[2022-07-03 08:00] VITALS: BP 174/74
[2022-07-03] MEDS: IV NS 0.9% 1,000 ML IV SCH ×2 (08:11→21:37)
[2022-07-03] MEDS: FOLIC ACID 1 MG TABLET PO SCH (08:12)
[2022-07-03] MEDS: LEVETIRACETAM (500MG) 500 MG in IV NS 0.9% 100 ML IV SCH (08:12)
[2022-07-03] MEDS: DOCUSATE SODIUM 100 MG CAPSULE PO SCH ×2 (08:12→17:19)
[2022-07-03] MEDS: AMLODIPINE BESYLATE 5 MG TABLET PO SCH (08:12)
[2022-07-03] MEDS: PROPRANOLOL LA 60 MG CAP.SA.24H PO SCH (08:13)
[2022-07-03] MEDS: ESTROGENS,CONJUGATED (0.3 mg) 0.3 MG TABLET PO SCH (08:13)
[2022-07-03] MEDS: ENSURE ENLIVE 237 ML LIQUID (VANILLA) PO SCH ×2 (08:14→17:19)
[2022-07-03] MEDS: PANTOPRAZOLE 40 MG VIAL IV SCH ×2 (08:50→17:19)
[2022-07-03] MEDS: Magnesium 1GM/D5W 100ML PREMIX 100 ML IV SCH ×2 (11:46→14:03)
[2022-07-03 12:00] VITALS: BP 139/67
[2022-07-03] MEDS: POTASSIUM CL. PREMIX PERIPHER. 50 ML IV SCH ×4 (12:47→14:15)
[2022-07-03] MEDS ORDERED: GENTAMICIN 320 MG in IV D5W 100 ML IV SCH (14:00)
[2022-07-03 16:00] VITALS: BP 145/67
[2022-07-03 17:43] LABS: MAGNESIUM 2.7 mg/dL (1.8-2.4); POTASSIUM 3.3 mmol/L (3.5-5.1)
--- NOTE | 2022-07-03 18:23 | NUR ---
RN Closing Note PT AOx2-3 but able to express her own concerns. Home caregiver at bedside asked to bring Nancy from home per pharmacies request. All safety precautions taken, call light and table within reach, bed at lowest position. Patient had 2 bowel movements throughout shift. IV with no signs of infiltration. No signs of distress throughout shift.
--- NOTE | 2022-07-03 19:33 | NUR ---
AUTOCAD OPENING NOTES: RECEIVED PATIENT AWAKE IN BED, BED IN LOW POSITION CALL LIGHTS WITHIN REACH, NO COMPLAIN OF PAIN AND DISCOMFORT AT THIS, ON NASAL CANNULA AT 2LPM SATURATING WELL, PATIENT ON TELE MONITOR-SR88 WITH IV LINE AT CATY ML WITH ONGOING NSS@75ML/HR INFUSING WELL, PATIENT KEPT CLEAN AND DRY ALL NEEDS MET WILL CONTINUE TO MONITOR.
[2022-07-03 20:00] VITALS: BP_SYST 119; BP_SYST 170; BP_DIAS 59; BP_DIAS 69
[2022-07-03] MEDS: LEVETIRACETAM (250 MG) 250 MG TABLET PO SCH (21:43)
[2022-07-03] MEDS: ENOXAPARIN SODIUM 40 MG/0.4 ML DISP.SYRIN SQ SCH (21:45)
[2022-07-04] VITALS: BP 143/62
[2022-07-04] MEDS: hydrALAZINE HCL IV 20 MG VIAL IV PRN (04:13)
[2022-07-04] MEDS: METRONIDAZOLE 500MG/ NS 100ML 500 MG in PREMIX 1 EA IV SCH ×2 (04:14→12:45)
[2022-07-04 06:16] LABS: BASOPHILS % (AUTO) 0.3 % (0.0-2.0); EOSINOPHILS % (AUTO) 1.1 % (0.0-6.0); HEMATOCRIT 31 % (33-45); LYMPHOCYTES # (AUTO) 2.2 K/uL (0.8-4.8); LYMPHOCYTES % (AUTO) 13.9 % (20.0-44.0); MEAN CORPUSCULAR HGB CONC 32 g/dl (31.0-36.0); MEAN CORPUSCULAR VOLUME 89 fL (82-100); MONOCYTES # (AUTO) 1.3 K/uL (0.1-1.30); MONOCYTES % (AUTO) 8.1 % (2.0-12.0); NEUTROPHILS # (AUTO) 12.1 K/uL (1.8-8.9); NEUTROPHILS % (AUTO) 76.6 % (43.0-81.0); PLATELET COUNT (AUTO) 475 K/uL (150-450); RED BLOOD CELL COUNT(AUTO) 3.49 MIL/uL (4.0-5.2); WHITE BLOOD COUNT (AUTO) 15.7 K/uL (4.3-11.0)
--- NOTE | 2022-07-04 06:33 | NUR ---
FOREIGN LANGUAGES PROFESSOR CLOSING NOTES: PATIENT SLEEP IN BED COMFORTABLY, AROUSABLE TO VERBAL STIMULI, BED IN LOW POSITION CALL LIGHTS WITHIN REACH, NO COMPLAIN OF PAIN AND DISCOMFORT AT THIS TIME, ON O2 INHALATION AT 2LPM SATURATING WELL, PATIENT ON TELE [id number], KEPT CLEAN AND DRY ALL NEEDS MET ENDORSE TO INCOMING SHIFT.
[2022-07-04 06:51] LABS: CALCIUM, SERUM 8.4 mg/dL (8.5-10.1); CREATININE 0.7 mg/dL (0.6-1.3); MAGNESIUM 1.7 mg/dL (1.8-2.4); PHOSPHORUS 2.4 mg/dL (2.5-4.9)
--- NOTE | 2022-07-04 07:30 | NUR ---
MOLD CAPPER HELPER OPENING NOTE PATIENT RECEIVED IN BED AND AWAKE. A/O X2-3 AND ABLE TO VERBALIZE NEEDS WITH SOME CONFUSION. IV ACCESS TO CATY-MIDLINE, INTACT AND PATENT WITH NO S/SX OF TRAUMA OR BLEEDING TO SITE. SAFETY MEASURES IN PLACE WITH BED IN LOWEST POSITION AND LOCKED. SIDERAIL UP AND CALL LIGHT WITHIN REACH. WILL CONTINUE TO MONITOR THROUGHOUT SHIFT.
[2022-07-04 08:00] VITALS: BP 172/72
[2022-07-04] MEDS ORDERED: POTASSIUM CL. PREMIX PERIPHER. 50 ML IV SCH (08:00)
[2022-07-04] MEDS: LEVETIRACETAM (250 MG) 250 MG TABLET PO SCH (08:24)
[2022-07-04] MEDS: FOLIC ACID 1 MG TABLET PO SCH (08:24)
[2022-07-04] MEDS: POTASSIUM CHLORIDE 20 MEQ TAB.PRT.SR PO SCH ×3 (08:24→10:26)
[2022-07-04] MEDS: PANTOPRAZOLE 40 MG VIAL IV SCH (08:24)
[2022-07-04] MEDS: AMLODIPINE BESYLATE 5 MG TABLET PO SCH (08:24)
[2022-07-04] MEDS: DOCUSATE SODIUM 100 MG CAPSULE PO SCH (08:24)
[2022-07-04] MEDS: clonazePAM 1 MG TABLET PO PRN (08:25)
[2022-07-04] MEDS: ENSURE ENLIVE 237 ML LIQUID (VANILLA) PO SCH (08:25)
[2022-07-04] MEDS: Magnesium 1GM/D5W 100ML PREMIX 100 ML IV SCH ×2 (08:25→09:15)
[2022-07-04] MEDS ORDERED: K PHOS NEUTRAL 250 MG TABLET PO ONE (09:00)
[2022-07-04] MEDS: ESTROGENS,CONJUGATED (0.3 mg) 0.3 MG TABLET PO SCH (09:14)
[2022-07-04 09:15] VITALS: BP 172/72
[2022-07-04] MEDS: PROPRANOLOL LA 60 MG CAP.SA.24H PO SCH (09:15)
[2022-07-04] MEDS: IV NS 0.9% 1,000 ML IV SCH (11:21)
[2022-07-04] MEDS ORDERED: hydrALAZINE HCL IV 20 MG VIAL IV PRN (14:00)
[2022-07-04] MEDS ORDERED: RXGEN XX (16:34)
[2022-07-04] MEDS ORDERED: LEVE250T2 PO (16:34)
[2022-07-04] MEDS ORDERED: METR500P3 IV (16:34)
--- NOTE | 2022-07-04 17:45 | NUR ---
INFORMATION SYSTEMS COORDINATOR NOTE PATIENT DISCHARGED FROM FACILITY VIA [facility] @ 0340. ACCOMPANIED BY AMBULANCE. PATIENT TRANSFERRED TO [facility]. ENDORSEMENT GIVEN TO RECEIVING NURSE, VERN @ FACILITY. ALL BELONGINGS AT BEDSIDE AND TRANSFERRED WITH PATIENT. IV SITE TO CATY LEFT INTACT PATIENT WILL CONTINUE ON IV ANTIBIOTICS X14 DAYS. MD AND CHARGE NURSE AWARE.
== END 2022-07-04 17:36 | DRG 372 ==
LOC: ER 20:47 → TRANSITION 06-30 02:27 → TELE 06-30 07:53
PROVIDERS: ADMIT Internal Medicine; ATTEND Registered Nurse
PROC: 05H633Z Insertion of Infusion Device into Left Subclavian Vein, Percutaneous Approach (ICD-10-PCS; principal; 2022-07-01)
PROC: B547ZZA Ultrasonography of Left Subclavian Vein, Guidance (ICD-10-PCS; 2022-07-01)
DX: A04.9 Bacterial intestinal infection, unspecified (principal); E44.1 Mild protein-calorie malnutrition; K57.92 Diverticulitis of intestine, part unspecified, without perforation or abscess without bleeding; R65.10 Systemic inflammatory response syndrome (SIRS) of non-infectious origin without acute organ dysfunction; F05 Delirium due to known physiological condition; Z68.1 Body mass index [BMI] 19.9 or less, adult; R56.9 Unspecified convulsions; E88.09 Other disorders of plasma-protein metabolism, not elsewhere classified; G89.4 Chronic pain syndrome; D64.9 Anemia, unspecified; F29 Unspecified psychosis not due to a substance or known physiological condition; F41.9 Anxiety disorder, unspecified; E87.6 Hypokalemia; I10 Essential (primary) hypertension; Z79.891 Long term (current) use of opiate analgesic; Z88.1 Allergy status to other antibiotic agents; D72.829 Elevated white blood cell count, unspecified; K59.00 Constipation, unspecified; R41.9 Unspecified symptoms and signs involving cognitive functions and awareness; A08.4 Viral intestinal infection, unspecified; T36.95XA Adverse effect of unspecified systemic antibiotic, initial encounter; Y92.89 Other specified places as the place of occurrence of the external cause
CPT/HCPCS: 36410; 36415; 71045-TC; 74018; 80048-TC; 80053-TC; 80076-TC; 80170-TC; 81001; 83605-TC; 83690-TC; 83735-TC; 84100-TC; 84132-TC; 84295-TC; 84484-TC; 85025-TC; 85027-TC; 85730-TC; 86850-TC; 87040-TC; 87081-TC; 95819-TC; 97110-TC; 97112-TC; 97530-TC; A4216; C9113; G0378; J0360; J1580; J1650; J1953; J2060; J2175; J2185; J3475; J3480; J7030; J7050; J7060

== ENCOUNTER 2024-03-23 14:17 | Emergency (ER) | payer MEDICARE, BC ==
[~2024-03-23] VITALS: Ht 165.1 cm; Wt 44.5 kg
[~2024-03-23 14:17] MED LIST changes: -ERGO500014 PO; -HYDR4TAB4 PO; +LEVE250T2 PO; -LORA-258 PO; +METR500P3 IV; -PROM25TA15 PO; +RXGEN XX
[2024-03-23 14:32] VITALS: BP 156/84; TEMP 97.9
[2024-03-23 14:55] VITALS: O2SAT 97
== END 2024-03-23 14:56 | disposition home or self-care (01) ==
LOC: ER 14:53
DX: S01.81XD Laceration without foreign body of other part of head, subsequent encounter (principal); I10 Essential (primary) hypertension; Z88.8 Allergy status to other drugs, medicaments and biological substances; Z88.2 Allergy status to sulfonamides; Z88.0 Allergy status to penicillin; Z88.1 Allergy status to other antibiotic agents; Z88.5 Allergy status to narcotic agent; Z88.6 Allergy status to analgesic agent; Z91.012 Allergy to eggs; Z88.7 Allergy status to serum and vaccine; Z91.018 Allergy to other foods; Z48.02 Encounter for removal of sutures; X58.XXXD Exposure to other specified factors, subsequent encounter

== ENCOUNTER 2025-05-06 17:44 | Inpatient (IN) | payer MEDICARE, BC ==
[~2025-05-06] VITALS: Ht 162.6 cm; Wt 47.6 kg
[2025-05-06 18:37] LABS: PLATELET COUNT (AUTO) 232 K/uL (150-450); RED BLOOD CELL COUNT(AUTO) 4.42 MIL/uL (4.0-5.2); RED CELL DISTRIBUTION WIDTH 14.6 % (11.5-15.0); WHITE BLOOD COUNT (AUTO) 8.8 K/uL (4.3-11.0)
[2025-05-06] MEDS ORDERED: FAMOTIDINE/PF INJ 20 MG/2 ML VIAL IV ONE ×2 (18:37→18:38)
[2025-05-06] MEDS ORDERED: ONDANSETRON HCL/PF 4 MG/2 ML VIAL ONE (18:37)
[2025-05-06 18:41] LABS: CALCIUM, SERUM 9.0 mg/dL (8.5-10.1); CREATININE 1.1 mg/dL (0.6-1.3); SODIUM SERUM 135 mmol/L (136-145); UREA NITROGEN, BLOOD 17 mg/dL (7-18)
[2025-05-06] MEDS: ONDANSETRON HCL/PF 4 MG/2 ML VIAL IV ONE (18:44)
[2025-05-06] MEDS: FAMOTIDINE/PF INJ 20 MG/2 ML VIAL IV ONE (18:44)
[2025-05-06 18:51] LABS: ASPARTATE AMINOTRANSFERASE 15 U/L (15-37); TOTAL PROTEIN, SERUM 7.4 g/dL (6.4-8.2)
[2025-05-06] MEDS ORDERED: IV NS 0.9% 250 ML IV ONE (18:59)
[2025-05-06] MEDS ORDERED: IOHEXOL-300 100 ML VIAL IV ONE (18:59)
[2025-05-06 21:24] LABS: APPEARANCE,URINE CLEAR (CLEAR); BLOOD, URINE NEGATIVE Ery/uL (NEGATIVE); LEUKOCYTE ESTERASE ,URINE NEGATIVE (NEGATIVE); NITRITE, URINE NEGATIVE (NEGATIVE); UGLUCOSE NEGATIVE (NEGATIVE)
[2025-05-06] MEDS: ONDANSETRON HCL/PF 4 MG/2 ML VIAL IVP PRN (21:53)
[2025-05-06] MEDS: IV NS 0.9% 1,000 ML IV SCH (21:53)
[2025-05-06 23:27] VITALS: BP 126/80; TEMP 97.9; O2SAT 98
[2025-05-07] VITALS: BP 126/80; TEMP 97.9; O2SAT 98
[2025-05-07] MEDS ORDERED: [UNRECOGNIZED DRUG - CODE] PO (00:07)
[2025-05-07] MEDS ORDERED: AMLO2.5T4 PO (00:07)
[2025-05-07] MEDS ORDERED: DEXL60CA3 PO (00:07)
[2025-05-07] MEDS ORDERED: ONDA4VIA52 IJ (00:07)
[2025-05-07] MEDS ORDERED: BUPR1FIL SL (00:07)
[2025-05-07] MEDS ORDERED: DIPH-1062 PO (00:07)
[2025-05-07] MEDS ORDERED: SPIR25TA6 PO (00:07)
[2025-05-07] MEDS ORDERED: NEBI10TA2 PO (00:07)
[2025-05-07] MEDS ORDERED: LORA-258 PO (00:07)
[2025-05-07] MEDS ORDERED: EPIN0.3P3 IM (00:07)
[2025-05-07] MEDS ORDERED: MAG HYDROX/AL HYDROX/SIMETH 30 ML UDC PO PRN (02:30)
[2025-05-07 06:45] LABS: PLATELET COUNT (AUTO) 210 K/uL (150-450); RED BLOOD CELL COUNT(AUTO) 3.93 MIL/uL (4.0-5.2); RED CELL DISTRIBUTION WIDTH 14.2 % (11.5-15.0); WHITE BLOOD COUNT (AUTO) 7.4 K/uL (4.3-11.0)
[2025-05-07 07:01] LABS: CALCIUM, SERUM 8.6 mg/dL (8.5-10.1); CREATININE 1.0 mg/dL (0.6-1.3); PHOSPHORUS 3.1 mg/dL (2.5-4.9); SODIUM SERUM 139 mmol/L (136-145); UREA NITROGEN, BLOOD 11 mg/dL (7-18)
[2025-05-07 08:00] VITALS: BP 163/62; TEMP 98.2; O2SAT 96
[2025-05-07] MEDS: PANTOPRAZOLE 40 MG TABLET.DR PO SCH (08:07)
[2025-05-07] MEDS: MULTIVITAMINS,THERAGRAN 1 UDTAB TABLET PO SCH (08:25)
[2025-05-07] MEDS: METOPROLOL TARTRATE 50 MG TABLET PO SCH (08:28)
[2025-05-07] MEDS: SPIRONOLACTONE 25 MG TABLET PO SCH (08:29)
[2025-05-07] MEDS: AMLODIPINE BESYLATE 2.5 MG TABLET PO SCH (08:29)
[2025-05-07] MEDS: ESTROGENS,CONJUGATED 1.25 MG TABLET PO SCH (09:00)
[2025-05-07] MEDS: LORAZEPAM 0.5 MG TABLET PO PRN (09:49)
[2025-05-07 16:00] VITALS: BP 152/56; TEMP 98.8; O2SAT 98
[2025-05-07 16:46] LABS: OCCULT BLOOD STOOL POSITIVE (NEGATIVE)
[2025-05-07] MEDS ORDERED: KEY,NONCONTROL,TO KEEP IN PYXI 1 EA MC ONE ×2 (18:08→18:36)
[2025-05-07] MEDS: NALOXONE HCL SL SCH (18:41)
[2025-05-07] MEDS: BUPRENORPHINE HCL SL SCH (18:41)
[2025-05-07 20:00] VITALS: BP 156/65; TEMP 99; O2SAT 98
[2025-05-08] MEDS ORDERED: KEY,NONCONTROL,TO KEEP IN PYXI 1 EA MC ONE ×3 (00:03→23:54)
[2025-05-08 08:30] VITALS: BP 162/78; TEMP 98.6; O2SAT 96
[2025-05-08] MEDS: PANTOPRAZOLE 40 MG VIAL IV SCH (08:40)
[2025-05-08] MEDS ORDERED: ESTROGENS,CONJUGATED 1.25 MG TABLET PO SCH (09:00)
[2025-05-08 09:02] LABS: RED BLOOD CELL COUNT(AUTO) 4.16 MIL/uL (4.0-5.2); WHITE BLOOD COUNT (AUTO) 5.7 K/uL (4.3-11.0)
[2025-05-08 09:03] LABS: PLATELET COUNT (AUTO) 198 K/uL (150-450); RED CELL DISTRIBUTION WIDTH 14.1 % (11.5-15.0)
[2025-05-08 10:45] LABS: CALCIUM, SERUM 8.7 mg/dL (8.5-10.1); CREATININE 0.9 mg/dL (0.6-1.3); SODIUM SERUM 138 mmol/L (136-145); UREA NITROGEN, BLOOD 12 mg/dL (7-18)
[2025-05-08 16:00] VITALS: BP 155/64; TEMP 98.4; O2SAT 94
[2025-05-08] MEDS: IV D5/0.45 NACL 1,000 ML IV PRN (18:43)
[2025-05-08 20:00] VITALS: BP 160/65; TEMP 98.1; O2SAT 96
[2025-05-09] MEDS ORDERED: KEY,NONCONTROL,TO KEEP IN PYXI 1 EA MC ONE ×4 (05:49→23:10)
[2025-05-09 07:30] VITALS: BP 150/59; TEMP 98.1; O2SAT 96
[2025-05-09 16:00] VITALS: BP 145/60; TEMP 98.4; O2SAT 96
[2025-05-09 20:00] VITALS: BP 143/62; TEMP 98.2; O2SAT 95
[2025-05-10] MEDS ORDERED: KEY,NONCONTROL,TO KEEP IN PYXI 1 EA MC ONE (05:20)
[2025-05-10 07:30] VITALS: BP 144/58; TEMP 98.6; O2SAT 95
[2025-05-10 08:27] VITALS: BP 144/58
[2025-05-10] MEDS: KEY,NONCONTROL,TO KEEP IN PYXI 1 EA MC ONE (15:32)
== END 2025-05-10 17:30 | disposition home health service (06) | DRG 392 ==
LOC: ER 17:50 → MERGE 22:01 → MED 22:01
PROVIDERS: ATTEND Internal Medicine
DX: K52.9 Noninfective gastroenteritis and colitis, unspecified (principal); F41.9 Anxiety disorder, unspecified; D64.9 Anemia, unspecified; Z88.2 Allergy status to sulfonamides; Z88.0 Allergy status to penicillin; M79.7 Fibromyalgia; I10 Essential (primary) hypertension; G89.29 Other chronic pain; G40.909 Epilepsy, unspecified, not intractable, without status epilepticus; Z53.20 Procedure and treatment not carried out because of patient's decision for unspecified reasons; K57.30 Diverticulosis of large intestine without perforation or abscess without bleeding; I70.8 Atherosclerosis of other arteries; R29.6 Repeated falls; K44.9 Diaphragmatic hernia without obstruction or gangrene; R19.5 Other fecal abnormalities; Z79.891 Long term (current) use of opiate analgesic; L98.8 Other specified disorders of the skin and subcutaneous tissue; I65.29 Occlusion and stenosis of unspecified carotid artery; Z88.1 Allergy status to other antibiotic agents; Z88.6 Allergy status to analgesic agent
CPT/HCPCS: 36415; 80048-TC; 80076-TC; 82272-TC; 82962-TC; 83690-TC; 83735-TC; 84100-TC; 84484-TC; 85025-TC; 85652-TC; 87081-TC; 87086-TC; 89055; 97116-TC; 97530-TC; A4223; G0378; J1308; J2405; J2470; J3490; J7030; J7050; Q9967

== ENCOUNTER 2025-06-05 01:40 | Emergency (ER) | payer MEDICARE, BC ==
[~2025-06-05] VITALS: Ht 157.5 cm; Wt 45.4 kg
[~2025-06-05 01:40] MED LIST changes: +AMLO2.5T4 PO; +BUPR1FIL SL; +DIPH-1062 PO; +EPIN0.3P3 IM; +LORA-258 PO; +NEBI10TA2 PO; +ONDA4VIA52 IJ; +SPIR25TA6 PO; +[UNRECOGNIZED DRUG - CODE] PO
[2025-06-05] MEDS ORDERED: ONDANSETRON HCL/PF 4 MG/2 ML VIAL ONE ×2 (02:13→05:39)
[2025-06-05] MEDS: IV NS 0.9% 1,000 ML BAG IV ONE (02:24)
[2025-06-05] MEDS: ONDANSETRON HCL/PF 4 MG/2 ML VIAL IVP ONE (02:24)
[2025-06-05] MEDS ORDERED: MEPERIDINE25 MG SYR 25 MG/ML VIAL ONE (02:28)
[2025-06-05 02:31] LABS: PLATELET COUNT (AUTO) 307 K/uL (150-450); RED BLOOD CELL COUNT(AUTO) 4.44 MIL/uL (4.0-5.2); RED CELL DISTRIBUTION WIDTH 14.0 % (11.5-15.0); WHITE BLOOD COUNT (AUTO) 9.5 K/uL (4.3-11.0)
[2025-06-05] MEDS: MEPERIDINE25 MG SYR 25 MG/ML VIAL IM ONE (02:36)
[2025-06-05 02:39] LABS: CALCIUM, SERUM 10.2 mg/dL (8.5-10.1); CREATININE 1.2 mg/dL (0.6-1.3); SODIUM SERUM 138.0 mmol/L (136-145); UREA NITROGEN, BLOOD 11.0 mg/dL (7-18)
[2025-06-05 02:45] LABS: ASPARTATE AMINOTRANSFERASE 14.0 U/L (15-37); TOTAL PROTEIN, SERUM 7.5 g/dL (6.4-8.2)
[2025-06-05] MEDS ORDERED: IV NS 0.9% 250 ML IV ONE (03:09)
[2025-06-05] MEDS ORDERED: IOHEXOL-350 100 ML VIAL IV ONE (03:09)
[2025-06-05] MEDS ORDERED: CT SWABBABLE VALVE TRANS SET 1 EA INFUS.SET MC ONE (03:09)
[2025-06-05] MEDS ORDERED: hydrALAZINE HCL IV 20 MG VIAL ONE ×2 (03:41→05:32)
[2025-06-05] MEDS: hydrALAZINE HCL IV 20 MG VIAL IV ONE ×2 (03:44→05:37)
[2025-06-05] MEDS ORDERED: LORAZEPAM 1 MG TABLET ONE (04:28)
[2025-06-05] MEDS: LORAZEPAM 1 MG TABLET PO ONE (04:32)
[2025-06-05] MEDS: ONDANSETRON HCL/PF - ER 4 MG/2 ML VIAL IV ONE (05:43)
[2025-06-05 07:02] VITALS: BP 175/80; TEMP 98.2; O2SAT 97
== END 2025-06-05 07:02 | disposition home or self-care (01) ==
LOC: ER 01:43
DX: R10.84 Generalized abdominal pain (principal); G89.4 Chronic pain syndrome; F41.9 Anxiety disorder, unspecified; I11.9 Hypertensive heart disease without heart failure; I49.3 Ventricular premature depolarization; K52.9 Noninfective gastroenteritis and colitis, unspecified; Z53.20 Procedure and treatment not carried out because of patient's decision for unspecified reasons; Z79.818 Long term (current) use of other agents affecting estrogen receptors and estrogen levels; Z79.899 Other long term (current) drug therapy; Z88.0 Allergy status to penicillin; Z88.1 Allergy status to other antibiotic agents; Z88.2 Allergy status to sulfonamides; Z88.5 Allergy status to narcotic agent; Z88.6 Allergy status to analgesic agent; Z88.7 Allergy status to serum and vaccine; Z88.8 Allergy status to other drugs, medicaments and biological substances; Z91.012 Allergy to eggs
CPT/HCPCS: 99285; 74177; 96374; 71045; 96375; 93005; 96376; 85025; 80048; 83690; 80076; 36415; 96372; J0360 ×2; J2405 ×3; J7050; Q9967; J2175